=== PATIENT | male | born 1980 | race Caucasian/White ===

== ENCOUNTER 2017-12-29 12:26 | Inpatient (IN) | payer OTHER ==
[2017-12-29 13:54] VITALS: BMI 24.0
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
[2017-12-29] MEDS ORDERED: guaiFENesin/D-METHORPHAN HB 10 ML UNIT-DOSE CUPS PO PRN (14:46)
[2017-12-29] MEDS ORDERED: LOPERAMIDE HCL 2 MG CAPSULE PO PRN (14:46)
[2017-12-29] MEDS ORDERED: MAG HYDROX/AL HYDROX/SIMETH 30 ML UNIT-DOSE CUP PO PRN (14:46)
[2017-12-29] MEDS ORDERED: NICOTINE POLACRILEX 4 MG GUM BC PRN (14:46)
[2017-12-29] MEDS ORDERED: MAGNESIUM CITRATE 300 ML BOTTLE PO PRN (14:46)
[2017-12-29] MEDS ORDERED: ACETAMINOPHEN 325 MG TABLET (FP) PO PRN (14:46)
[2017-12-29] MEDS ORDERED: MAGNESIUM HYDROX 2400MG/30ML ORAL SUSPENSION 30 ML CUP PO PRN (14:46)
[2017-12-29] MEDS ORDERED: MENTHOL/PHENOL 1 EACH UD MM PRN (14:46)
[2017-12-29] MEDS ORDERED: P-EPHED 60MG/TRIPROLIDI 2.5MG TABLET PO PRN (14:46)
[2017-12-29] MEDS ORDERED: METHADONE HCL 10 MG TABLET (FOR DETOX USE ONLY) PO ONE ×2 (16:15→23:00)
[2017-12-29] MEDS: IBUPROFEN 400 MG TABLET (FP) PO PRN (19:19)
[2017-12-29] MEDS: THIAMINE HCL 100 MG TABLET (FP) PO SCH (22:45)
[2017-12-30 02:01] LABS: URINE APPEARANCE CLEAR; URINE BILIRUBIN NEGATIVE (<2.0 mg/dL); URINE COLOR LTYELLOW; URINE GLUCOSE (UA) NEGATIVE (NEGATIVE); URINE KETONE NEGATIVE (NEGATIVE); URINE LEUK ESTERASE NEGATIVE (NEGATIVE); URINE NITRITE NEGATIVE (NEGATIVE); URINE PROTEIN NEGATIVE (NEGATIVE); URINE UROBILINOGEN NEGATIVE mg/dL (0.2-1.0)
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
[2017-12-30] MEDS ORDERED: METHADONE HCL 10 MG TABLET (FOR DETOX USE ONLY) PO ONE (10:00)
[2017-12-30 10:35] LABS: HEMATOCRIT 40.1 % (35.4-49); HEMOGLOBIN 12.6 GM/dL (11.7-16.9); MCH 24.5 pg (25.7-33.7); MCHC 31.5 g/dl (32.0-35.9); MEAN CELL VOLUME 77.8 fl (80-96); MEAN PLT VOLUME 8.1 fl (7.5-11.1); PLATELET COUNT 228 K/MM3 (134-434); RBC 5.16 M/mm3 (4.00-5.60); RDW 16.6 % (11.9-15.9); WHITE BLOOD COUNT 6.4 K/mm3 (4.0-10.0)
[2017-12-30 10:49] LABS: ALBUMIN 3.2 g/dl (3.4-5.0); ANION GAP 7 MMOL/L (8-16); BLOOD UREA NITROGEN 25 mg/dL (7-18); CALCIUM 8.4 mg/dL (8.5-10.1); CHLORIDE 110 mmol/L (98-107); CO2 29 mmol/L (21-32); GLUCOSE,RANDOM 81 mg/dL (74-106); POTASSIUM 4.5 mmol/L (3.5-5.1); SGOT/AST 37 U/L (15-37); SGPT/ALT 74 U/L (13-61); SODIUM 146 mmol/L (136-145)
[2017-12-30 10:51] LABS: ALK PHOS 73 U/L (45-117); BILIRUBIN,TOTAL 0.3 mg/dL (0.2-1.0); CREATININE 0.8 mg/dL (0.55-1.3); TOT PROT 6.6 g/dl (6.4-8.2)
[2017-12-30] MEDS: diazePAM 5 MG TABLET PO PRN ×2 (10:55→22:45)
[2017-12-30] MEDS: PRENATAL VITAMINS W/ FOLIC ACID TABLET (FP) PO SCH (10:55)
[2017-12-30] MEDS: IBUPROFEN 400 MG TABLET (FP) PO PRN ×2 (11:49→22:45)
--- NOTE | 2017-12-30 17:41 | PN ---
S COWS - Scale Resting Pulse: 0= [place] 80 or Below Sweatin= Chills/Flushing Restless Observation: 3= Extraneous Movement Pupil Size: 1= Pupils >than Normal Bone or Joint Aches: 2= Severe Diffuse Aches Runny Nose/ Eye Tearin= Runny Nose/Eyes GI Upset > 30mins: 2= Nausea/Diarrhea Tremor Observation of Outstretched Hands: 2= Slight Tremor Visible Yawning Observation: 1= 1-2x During Session Anxiety or Irritability: 2=Irritable/Anxious Goose Flesh Skin: 0=Smooth Skin COWS Score: 16 S Progress Note (SOAP) Subjective: Interrupted sleep Objective: 12/30/17 17:38 Last Vital Signs Temp Pulse Resp BP Pulse Ox 97.5 F L 75 18 117/57 12/30/17 14:22 12/30/17 14:22 12/30/17 14:22 12/30/17 14:22 Laboratory Tests 12/29/17 12/30/17 12/30/17 21:32 07:25 07:25 WBC 6.4 RBC 5.16 Hgb 12.6 Hct 40.1 MCV 77.8 L MCH 24.5 L MCHC 31.5 L RDW 16.6 H Plt Count 228 MPV 8.1 Sodium 146 H Potassium 4.5 Chloride 110 H Carbon Dioxide 29 Anion Gap 7 L BUN 25 H Creatinine 0.8 Creat Clearance w eGFR > 60 Random Glucose 81 Calcium 8.4 L Total Bilirubin 0.3 AST 37 ALT 74 H Alkaline Phosphatase 73 Total Protein 6.6 Albumin 3.2 L Urine Color Ltyellow Urine Appearance Clear Urine pH 8.0 Ur Specific [place] 1.013 Urine Protein Negative Urine Glucose (UA) Negative Urine Ketones Negative Urine Blood Negative Urine Nitrite Negative Urine Bilirubin Negative Urine Urobilinogen Negative Ur Leukocyte Esterase Negative RPR Titer 12/30/17 07:25 WBC RBC Hgb Hct MCV MCH MCHC RDW Plt Count MPV Sodium Potassium Chloride Carbon Dioxide Anion Gap BUN Creatinine Creat Clearance w eGFR Random Glucose Calcium Total Bilirubin AST ALT Alkaline Phosphatase Total Protein Albumin Urine Color Urine Appearance Urine pH Ur Specific [place] Urine Protein Urine Glucose (UA) Urine Ketones Urine Blood Urine Nitrite Urine Bilirubin Urine Urobilinogen Ur Leukocyte Esterase RPR Titer Nonreactive Labs reviewed: bun 25 Assessment: 12/30/17 17:38 Withdrawal symptoms Noted with azotemia Plan: Continue detox Azotemia: encouraged PO water intake
--- NOTE | 2017-12-30 22:29 | EKG ---
Test Reason : Blood Pressure : / mmHG Vent. Rate : 068 BPM Atrial Rate : 068 BPM P-R Int : 114 ms QRS Dur : 090 ms QT Int : 406 ms P-R-T Axes : -10 077 057 degrees QTc Int : 431 ms NORMAL SINUS RHYTHM WITH SINUS ARRHYTHMIA VOLTAGE CRITERIA FOR LEFT VENTRICULAR HYPERTROPHY ABNORMAL ECG NO PREVIOUS ECGS AVAILABLE Confirmed by RUDOLPH PARKER MD ([id number]) on 12/30/2017 10:29:02 PM Referred By: Confirmed By:RUDOLPH PARKER MD
[2017-12-30] MEDS: THIAMINE HCL 100 MG TABLET (FP) PO SCH (22:45)
[2017-12-30] MEDS: MELATONIN 5 MG TABLETS PO PRN (22:46)
[2017-12-31] MEDS: IBUPROFEN 400 MG TABLET (FP) PO PRN ×2 (08:36→18:27)
[2017-12-31] MEDS ORDERED: METHADONE HCL 5 MG TABLET (FOR DETOX USE ONLY) PO ONE (10:00)
[2017-12-31] MEDS: diazePAM 5 MG TABLET PO PRN (10:36)
[2017-12-31] MEDS: PRENATAL VITAMINS W/ FOLIC ACID TABLET (FP) PO SCH (10:36)
[2017-12-31] MEDS ORDERED: COLLOIDAL OATMEAL 1 BAR EACH TP PRN (16:17)
--- NOTE | 2017-12-31 19:19 | PN ---
BHS COWS - Scale Resting Pulse: 0= [place] 80 or Below Sweatin=Flushed/Facial Moisture Restless Observation: 3= Extraneous Movement Pupil Size: 0= Normal to Room Light Bone or Joint Aches: 1= Mild Discomfort Runny Nose/ Eye Tearin= Nasal Congestion GI Upset > 30mins: 2= Nausea/Diarrhea Tremor Observation of Outstretched Hands: 2= Slight Tremor Visible Yawning Observation: 0= None Anxiety or Irritability: 1=Feels Anxious/Irritable Goose Flesh Skin: 0=Smooth Skin COWS Score: 12 BHS Progress Note (SOAP) Subjective: tooth ache sweats sleep disturbance Objective: 12/31/17 19:18 A & O x 3 Vital Signs Temperature 97.6 F 12/31/17 18:02 Pulse Rate 70 12/31/17 18:02 Respiratory Rate 18 12/31/17 18:02 Blood Pressure 110/65 12/31/17 18:02 O2 Sat by Pulse Oximetry (%) Assessment: 12/31/17 19:18 withdrawal sx Plan: continue detox increase fluid
[2017-12-31] MEDS: THIAMINE HCL 100 MG TABLET (FP) PO SCH (22:12)
[2017-12-31] MEDS: MELATONIN 5 MG TABLETS PO PRN (22:13)
[2018-01-01] MEDS ORDERED: METHADONE HCL 5 MG TABLET (FOR DETOX USE ONLY) PO ONE (10:00)
[2018-01-01] MEDS: diazePAM 5 MG TABLET PO PRN (10:15)
[2018-01-01] MEDS: PRENATAL VITAMINS W/ FOLIC ACID TABLET (FP) PO SCH (10:16)
[2018-01-01] MEDS: IBUPROFEN 400 MG TABLET (FP) PO PRN (10:17)
--- NOTE | 2018-01-01 11:23 | PN ---
BHS Progress Note (SOAP) Subjective: Still having some shakes and sweats. My tooth hurts. Objective: A&O x3. No abscess, lesions, erythema noted at gum near (L) upper molar tooth tenderness. Abd S/NT. Mild tremors of hands. (+) perspiration on brows. o Assessment: Withdrawal symptoms. Toothache. Plan: Continue detox. Prescribe orajel/ibuprofen
[2018-01-01] MEDS: MELATONIN 5 MG TABLETS PO PRN (22:18)
[2018-01-01] MEDS: THIAMINE HCL 100 MG TABLET (FP) PO SCH (22:18)
[2018-01-01] MEDS: hydrOXYzine PAMOATE 25 MG CAPSULE (FP) PO PRN (22:19)
[2018-01-02] MEDS ORDERED: METHADONE HCL 10 MG TABLET (FOR DETOX USE ONLY) PO ONE (10:00)
--- NOTE | 2018-01-02 10:12 | PN ---
BHS Progress Note (SOAP) Subjective: C/O ANXIETY,EXCRUCIATING RIGHT UPPER TOOTH ACHE/HEADACHE/RADIATING JAW ACHE. Objective: 01/02/18 10:02 Vital Signs - 8 hr 01/02/18 01/02/18 07:02 09:29 Temperature 97.0 F L 96.8 F L Pulse Rate 49 L 64 Respiratory 18 16 Rate Blood Pressure 109/63 121/64 Laboratory Tests 12/29/17 12/30/17 12/30/17 21:32 07:25 07:25 WBC 6.4 RBC 5.16 Hgb 12.6 Hct 40.1 MCV 77.8 L MCH 24.5 L MCHC 31.5 L RDW 16.6 H Plt Count 228 MPV 8.1 Sodium 146 H Potassium 4.5 Chloride 110 H Carbon Dioxide 29 Anion Gap 7 L BUN 25 H Creatinine 0.8 Creat Clearance w eGFR > 60 Random Glucose 81 Calcium 8.4 L Total Bilirubin 0.3 AST 37 ALT 74 H Alkaline Phosphatase 73 Total Protein 6.6 Albumin 3.2 L Urine Color Ltyellow Urine Appearance Clear Urine pH 8.0 Ur Specific [place] 1.013 Urine Protein Negative Urine Glucose (UA) Negative Urine Ketones Negative Urine Blood Negative Urine Nitrite Negative Urine Bilirubin Negative Urine Urobilinogen Negative Ur Leukocyte Esterase Negative RPR Titer 12/30/17 07:25 WBC RBC Hgb Hct MCV MCH MCHC RDW Plt Count MPV Sodium Potassium Chloride Carbon Dioxide Anion Gap BUN Creatinine Creat Clearance w eGFR Random Glucose Calcium Total Bilirubin AST ALT Alkaline Phosphatase Total Protein Albumin Urine Color Urine Appearance Urine pH Ur Specific [place] Urine Protein Urine Glucose (UA) Urine Ketones Urine Blood Urine Nitrite Urine Bilirubin Urine Urobilinogen Ur Leukocyte Esterase RPR Titer Nonreactive RIGHT UPPER MOLAR TOOTH DECAYED/ABSCESS Assessment: 01/02/18 10:03 WITHDRAWAL SX TOOTH ABSCESS/DECAY Plan: CONTINUE DETOX AUGMENTIN 875 MG PO BID X 10 DAYS. FOLLOW UP WITH DENTIST AFTER DETOX.
[2018-01-02] MEDS: PRENATAL VITAMINS W/ FOLIC ACID TABLET (FP) PO SCH (10:40)
[2018-01-02] MEDS ORDERED: AMOX TR/POT CLAV 875MG/125MG TABLETS (FP) PO ONE (10:40)
[2018-01-02] MEDS: BENZOCAINE 20 % GEL TUBE MM PRN (10:40)
[2018-01-02] MEDS: IBUPROFEN 400 MG TABLET (FP) PO PRN ×2 (10:41→22:40)
[2018-01-02] MEDS: AMOX TR/POT CLAV 875MG/125MG TABLETS (FP) PO SCH (17:59)
[2018-01-02] MEDS: MELATONIN 5 MG TABLETS PO PRN (22:38)
[2018-01-02] MEDS: THIAMINE HCL 100 MG TABLET (FP) PO SCH (22:38)
[2018-01-02] MEDS: hydrOXYzine PAMOATE 25 MG CAPSULE (FP) PO PRN (22:40)
[2018-01-03] MEDS ORDERED: METHADONE HCL 5 MG TABLET (FOR DETOX USE ONLY) PO ONE (06:00)
[2018-01-03] MEDS: AMOX TR/POT CLAV 875MG/125MG TABLETS (FP) PO SCH ×2 (07:29→18:06)
[2018-01-03] MEDS: IBUPROFEN 400 MG TABLET (FP) PO PRN ×2 (10:26→20:01)
[2018-01-03] MEDS: PRENATAL VITAMINS W/ FOLIC ACID TABLET (FP) PO SCH (10:26)
--- NOTE | 2018-01-03 11:47 | PN ---
BHS Progress Note (SOAP) Subjective: DETOX COMPLETED. ALERT O X 3. NAD. PT REPORTS HE GOES TO [facility] NEEDED. Objective: 01/03/18 11:46 Vital Signs 01/03/18 01/03/18 06:19 10:07 Temperature 97.0 F L 97.9 F Pulse Rate 53 L 86 Respiratory 18 20 Rate Blood Pressure 100/54 129/70 Laboratory Tests 12/29/17 12/30/17 12/30/17 21:32 07:25 07:25 WBC 6.4 RBC 5.16 Hgb 12.6 Hct 40.1 MCV 77.8 L MCH 24.5 L MCHC 31.5 L RDW 16.6 H Plt Count 228 MPV 8.1 Sodium 146 H Potassium 4.5 Chloride 110 H Carbon Dioxide 29 Anion Gap 7 L BUN 25 H Creatinine 0.8 Creat Clearance w eGFR > 60 Random Glucose 81 Calcium 8.4 L Total Bilirubin 0.3 AST 37 ALT 74 H Alkaline Phosphatase 73 Total Protein 6.6 Albumin 3.2 L Urine Color Ltyellow Urine Appearance Clear Urine pH 8.0 Ur Specific [place] 1.013 Urine Protein Negative Urine Glucose (UA) Negative Urine Ketones Negative Urine Blood Negative Urine Nitrite Negative Urine Bilirubin Negative Urine Urobilinogen Negative Ur Leukocyte Esterase Negative RPR Titer 12/30/17 07:25 WBC RBC Hgb Hct MCV MCH MCHC RDW Plt Count MPV Sodium Potassium Chloride Carbon Dioxide Anion Gap BUN Creatinine Creat Clearance w eGFR Random Glucose Calcium Total Bilirubin AST ALT Alkaline Phosphatase Total Protein Albumin Urine Color Urine Appearance Urine pH Ur Specific [place] Urine Protein Urine Glucose (UA) Urine Ketones Urine Blood Urine Nitrite Urine Bilirubin Urine Urobilinogen Ur Leukocyte Esterase RPR Titer Nonreactive Assessment: 01/03/18 11:46 MEDICALLY STABLE Plan: D/C PT TODAY
--- NOTE | 2018-01-03 11:53 | DS ---
[facility] Detox Discharge Summary Admission Date: 12/29/17 Discharge Date: 01/03/18 - History Present History: Cannabis Dependence, Cocaine Dependence, Opioid Dependence Additional Comments: DETOX COMPLETED. ALERT O X 3. NAD. FOLLOW UP AT [facility] NEEDED. RX FOR AUGMENTIN 875 MG PO BID #14 SENT TO [facility] FOR RN MDS COORDINATOR BY PATIENT UPON DISCHARGE TODAY. PT INSTRUCTED TO FOLLOW UP WITH HIS DENTIST FOR DENTAL CARE. Pertinent Past History: PLEASE SEE DX BELOW - Physical Exam Results Vital Signs: Vital Signs Temperature 97.9 F 01/03/18 10:07 Pulse Rate 86 01/03/18 10:07 Respiratory Rate 20 01/03/18 10:07 Blood Pressure 129/70 01/03/18 10:07 O2 Sat by Pulse Oximetry (%) Pertinent Admission Physical Exam Findings: WITHDRAWAL SX Laboratory Tests 12/29/17 12/30/17 12/30/17 21:32 07:25 07:25 WBC 6.4 RBC 5.16 Hgb 12.6 Hct 40.1 MCV 77.8 L MCH 24.5 L MCHC 31.5 L RDW 16.6 H Plt Count 228 MPV 8.1 Sodium 146 H Potassium 4.5 Chloride 110 H Carbon Dioxide 29 Anion Gap 7 L BUN 25 H Creatinine 0.8 Creat Clearance w eGFR > 60 Random Glucose 81 Calcium 8.4 L Total Bilirubin 0.3 AST 37 ALT 74 H Alkaline Phosphatase 73 Total Protein 6.6 Albumin 3.2 L Urine Color Ltyellow Urine Appearance Clear Urine pH 8.0 Ur Specific [place] 1.013 Urine Protein Negative Urine Glucose (UA) Negative Urine Ketones Negative Urine Blood Negative Urine Nitrite Negative Urine Bilirubin Negative Urine Urobilinogen Negative Ur Leukocyte Esterase Negative RPR Titer 12/30/17 07:25 WBC RBC Hgb Hct MCV MCH MCHC RDW Plt Count MPV Sodium Potassium Chloride Carbon Dioxide Anion Gap BUN Creatinine Creat Clearance w eGFR Random Glucose Calcium Total Bilirubin AST ALT Alkaline Phosphatase Total Protein Albumin Urine Color Urine Appearance Urine pH Ur Specific [place] Urine Protein Urine Glucose (UA) Urine Ketones Urine Blood Urine Nitrite Urine Bilirubin Urine Urobilinogen Ur Leukocyte Esterase RPR Titer Nonreactive - Treatment Hospital Course: Detox Protocol Followed, Detoxed Safely, Responded well, Discharged Condition Good - Medication Discharge Medications: Ambulatory Orders Amox-Tr/K Cl [Augmentin 875-125mg Tablet -] 1 tab PO BID@0800,1730 #14 tablet - Diagnosis (1) Tooth abscess Current Visit: Yes Status: Acute (2) Opioid dependence with withdrawal Current Visit: Yes Status: Acute (3) Tooth ache Current Visit: Yes Status: Acute (4) Cocaine dependence Current Visit: Yes Status: Acute Qualifiers: Substance use status: uncomplicated Qualified Code(s): F14.20 - Cocaine dependence, uncomplicated (5) Hepatitis C Current Visit: Yes Status: Chronic Qualifiers: Viral hepatitis chronicity: chronic Hepatic coma status: without hepatic coma Qualified Code(s): B18.2 - Chronic viral hepatitis C (6) Marijuana dependence Current Visit: Yes Status: Acute (7) Nicotine dependence Current Visit: Yes Status: Acute Qualifiers: Nicotine product type: cigarettes Substance use status: in withdrawal Qualified Code(s): F17.213 - Nicotine dependence, cigarettes, with withdrawal - AMA Did Patient Leave Against Medical Advice: No
--- NOTE | 2018-01-03 13:26 | PN ---
[facility] Progress Note Note: PT WILL BE HELD TILL TOMORROW PER MULTIDISCIPLINARY CONSULTATION WITH PT' S COUNSELOR JOANNA THEODORE WHO IS WORKING ON PT'S REFERRAL APPOINTMENT IN-HOUSE OR [facility] . NO REHAB BED AVAILABLE HERE TODAY. PLAN: D/C PT IN A.M IF BED AVAILABLE IN REHAB.
[2018-01-03] MEDS: THIAMINE HCL 100 MG TABLET (FP) PO SCH (22:59)
[2018-01-03] MEDS: MELATONIN 5 MG TABLETS PO PRN (22:59)
[2018-01-04 06:26] VITALS: BP 108/62; PULSE 47; TEMP 97.6
[2018-01-04] MEDS: BENZOCAINE 20 % GEL TUBE MM PRN (07:17)
[2018-01-04] MEDS: AMOX TR/POT CLAV 875MG/125MG TABLETS (FP) PO SCH (07:19)
--- NOTE | 2018-01-04 14:49 | PN ---
[facility] Progress Note Note: PT WAS DISCHARGED TODAY. ALERT O A 3. NAD.(SEE COUNSELORS NOTE FOR REFERRAL NOTE ). Vital Signs - 24 hr 01/03/18 01/03/18 01/04/18 17:24 22:00 00:30 Temperature 98.1 F 97.9 F Pulse Rate 67 67 Respiratory 18 18 18 Rate Blood Pressure 117/69 125/73 01/04/18 01/04/18 03:30 06:26 Temperature 97.6 F Pulse Rate 47 L Respiratory 18 16 Rate Blood Pressure 108/62 Laboratory Tests 12/29/17 12/30/17 12/30/17 21:32 07:25 07:25 WBC 6.4 RBC 5.16 Hgb 12.6 Hct 40.1 MCV 77.8 L MCH 24.5 L MCHC 31.5 L RDW 16.6 H Plt Count 228 MPV 8.1 Sodium 146 H Potassium 4.5 Chloride 110 H Carbon Dioxide 29 Anion Gap 7 L BUN 25 H Creatinine 0.8 Creat Clearance w eGFR > 60 Random Glucose 81 Calcium 8.4 L Total Bilirubin 0.3 AST 37 ALT 74 H Alkaline Phosphatase 73 Total Protein 6.6 Albumin 3.2 L Urine Color Ltyellow Urine Appearance Clear Urine pH 8.0 Ur Specific [place] 1.013 Urine Protein Negative Urine Glucose (UA) Negative Urine Ketones Negative Urine Blood Negative Urine Nitrite Negative Urine Bilirubin Negative Urine Urobilinogen Negative Ur Leukocyte Esterase Negative RPR Titer 12/30/17 07:25 WBC RBC Hgb Hct MCV MCH MCHC RDW Plt Count MPV Sodium Potassium Chloride Carbon Dioxide Anion Gap BUN Creatinine Creat Clearance w eGFR Random Glucose Calcium Total Bilirubin AST ALT Alkaline Phosphatase Total Protein Albumin Urine Color Urine Appearance Urine pH Ur Specific [place] Urine Protein Urine Glucose (UA) Urine Ketones Urine Blood Urine Nitrite Urine Bilirubin Urine Urobilinogen Ur Leukocyte Esterase RPR Titer Nonreactive NAD D/C PT TODAY.
== END 2018-01-04 09:58 | disposition home or self-care (01) | DRG 773 ==
LOC: YASAS 12:26 → Y3N 14:25
PROC: HZ2ZZZZ Detoxification Services for Substance Abuse Treatment (ICD-10-PCS; principal; 2017-12-29)
DX: F11.23 Opioid dependence with withdrawal (principal); F14.20 Cocaine dependence, uncomplicated; F12.20 Cannabis dependence, uncomplicated; F17.213 Nicotine dependence, cigarettes, with withdrawal; B18.2 Chronic viral hepatitis C; K08.89 Other specified disorders of teeth and supporting structures; R79.89 Other specified abnormal findings of blood chemistry
CPT/HCPCS: 36415; 80053; 81003; 85027; 86593; 93005; 93010